=== PATIENT | female | born 1955 | race Two or more races ===

== ENCOUNTER 2017-10-25 08:23 | Emergency (ER) | payer OTHER ==
[~2017-10-25] VITALS: Ht 162.6 cm; Wt 138.3 kg
[~2017-10-25 08:23] MED LIST: DICL-37; ENAL10TA88; FURO80TA; GABA300C; LEVO25TA6; METH-532; METHOTREXATE; NOR10T; OXYC15TA48; SERT-135; TRAM-297
[2017-10-25] MEDS ORDERED: SODIUM CHLORIDE 0.9% 1,000 ML IV ONE (08:40)
[2017-10-25] MEDS ORDERED: KETOROLAC TROMETH 30 MG/ML 1ML VIAL IV ONE (08:45)
[2017-10-25 11:34] LABS: Basophils # (auto) 0.1 uL; Eosinophils # (auto) 0.1 uL; Eosinophils % (auto) 0.9 % (0.0-7.0); Hematocrit 39.7 % (36.0-46.0); Hemoglobin 13.2 g/dL (12.2-16.2); Lymphocytes # (auto) 1.2 uL; Lymphocytes % (auto) 11.4 % (10.0-50.0); Mean Corpuscular Hemoglobin 29.4 pg (28.0-32.0); Mean Corpuscular Hgb Conc. 33.2 g/dL (32.0-36.0); Mean Corpuscular Volume 88.6 fL (80.0-100.0); Monocytes # (auto) 0.3 uL; Monocytes % (auto) 3.2 % (0.0-12.0); Neutrophils # (auto) 8.6 uL; Neutrophils % (auto) 83.5 % (37.0-80.0); Nucleated Red Blood Cells % 0.1 %; Platelet Count (auto) 153 10^3/uL (140-450); Red Blood Cells 4.48 10^6/uL (4.0-5.20); Red Cell Distribution Width 15.1 % (11.8-14.3); White Blood Cell 10.3 10^3/uL (4.4-10.8)
[2017-10-25 11:54] LABS: Albumin 3.3 g/dL (3.4-5.0); BUN/Creatinine Ratio 24.6; Bilirubin, Total 0.4 mg/dL (0.2-1.0); Calcium 8.9 mg/dL (8.5-10.1); Total Protein 7.3 g/dL (6.4-8.2)
[2017-10-25 14:08] VITALS: BP 149/62
== END 2017-10-26 08:17 | disposition home or self-care (01) ==
LOC: EDBD 08:23 → ER 08:28
DX: M79.605 Pain in left leg (principal); M79.604 Pain in right leg; J44.9 Chronic obstructive pulmonary disease, unspecified; M19.90 Unspecified osteoarthritis, unspecified site; I10 Essential (primary) hypertension; E07.9 Disorder of thyroid, unspecified; Z88.1 Allergy status to other antibiotic agents; Z88.6 Allergy status to analgesic agent; Z88.0 Allergy status to penicillin; Z88.8 Allergy status to other drugs, medicaments and biological substances; Z79.899 Other long term (current) drug therapy; Z90.710 Acquired absence of both cervix and uterus
CPT/HCPCS: 36415; 73560; 73600; 80053; 85025; 96361; 96374; 99285; J1885; J7030

== ENCOUNTER 2018-07-14 13:59 | Emergency (ER) | payer OTHER, MEDICAID ==
[~2018-07-14] VITALS: Ht 167.6 cm; Wt 222.3 kg
[2018-07-14] MEDS ORDERED: KETOROLAC TROMETH 30 MG/ML 1ML VIAL IV ONE (14:30)
[2018-07-14 14:45] LABS: Basophils # (auto) 0 uL; Basophils % (auto) 0.7 % (0.0-2.0); Eosinophils # (auto) 0.3 uL; Eosinophils % (auto) 4.2 % (0.0-7.0); Hematocrit 43.2 % (36.0-46.0); Hemoglobin 14.1 g/dL (12.2-16.2); Lymphocytes # (auto) 1.5 uL; Lymphocytes % (auto) 24.2 % (10.0-50.0); Mean Corpuscular Hemoglobin 28.6 pg (28.0-32.0); Mean Corpuscular Hgb Conc. 32.6 g/dL (32.0-36.0); Mean Corpuscular Volume 87.7 fL (80.0-100.0); Monocytes # (auto) 0.3 uL; Monocytes % (auto) 5.4 % (0.0-12.0); Neutrophils % (auto) 65.5 % (37.0-80.0); Platelet Count (auto) 156 10^3/uL (140-450); Red Blood Cells 4.92 10^6/uL (4.0-5.20); Red Cell Distribution Width 16.3 % (11.8-14.3); White Blood Cell 6.1 10^3/uL (4.4-10.8)
[2018-07-14 15:02] LABS: INR 0.95 (0.9-1.15); Partial Thromboplastin Time 27.8 sec (23.78-33.04); Prothrombin Time 10.2 sec (9.27-12.13)
[2018-07-14 15:14] LABS: BUN/Creatinine Ratio 22.4; Bilirubin, Total 0.3 mg/dL (0.2-1.0); Calcium 8.5 mg/dL (8.5-10.1); Potassium 3.7 mmol/L (3.5-5.1); Total Protein 7.4 g/dL (6.4-8.2)
[2018-07-14 22:02] VITALS: BP 97/63
== END 2018-07-14 22:30 | disposition home or self-care (01) ==
LOC: EDBD 13:59 → ER 14:01
DX: M25.561 Pain in right knee (principal); J44.9 Chronic obstructive pulmonary disease, unspecified; I10 Essential (primary) hypertension; Z90.710 Acquired absence of both cervix and uterus; Z88.0 Allergy status to penicillin; Z88.1 Allergy status to other antibiotic agents; Z88.2 Allergy status to sulfonamides; Z88.5 Allergy status to narcotic agent; Z79.899 Other long term (current) drug therapy
CPT/HCPCS: 36415; 80053; 85025; 85379; 85610; 85730; 93971; 94761; 96374; 99285; J1885

== ENCOUNTER 2018-12-02 09:38 | Emergency (ER) | payer OTHER, MEDICAID ==
[~2018-12-02] VITALS: Ht 165.1 cm; Wt 204.1 kg
[~2018-12-02 09:38] MED LIST changes: +ACE500T PO; +ALB5IS NEB; +CEFU500T43 PO; +CLOT1CRE13 TOP; +CRANCAP12 PO; -DICL-37; +DOCU100C8 PO; +DOXY-216 PO; +DULO40CA PO; -ENAL10TA88; +FURO40TA4 PO; -FURO80TA; -GABA300C; +GABA300C10 PO; +GUAI600T23 PO; +HYDR-4683 PO; +IPR002IS NEB; +IPRA1SOL3 IN; -LEVO25TA6; +LINE1TAB6 PO; +LOPE2TAB78 PO; +LORA-654 PO; +LOSA-46 PO; +MAGN400C2 PO; -METH-532; -METHOTREXATE; +MIRT30TA PO; +MULT1TAB95 PO; -NOR10T; +NYS15PW TOP; -OXYC15TA48; +PROP10TA57 PO; +QUET100T46 PO; +SENN1TAB14 PO; -SERT-135; +SERT-274 PO; -TRAM-297; +TRIA0.1P11 TOP; +TURM500C3 PO
[2018-12-02] MEDS ORDERED: SODIUM CHLORIDE 0.9% 500 ML IVB ONE (09:49)
[2018-12-02 10:57] LABS: Basophils # (auto) 0.1 uL; Basophils % (auto) 0.5 % (0.0-2.0); Eosinophils # (auto) 0 uL; Eosinophils % (auto) 0.4 % (0.0-7.0); Hematocrit 44.2 % (36.0-46.0); Hemoglobin 13.8 g/dL (12.2-16.2); Lymphocytes # (auto) 1.3 uL; Lymphocytes % (auto) 11.8 % (10.0-50.0); Mean Corpuscular Hemoglobin 29.3 pg (28.0-32.0); Mean Corpuscular Hgb Conc. 31.1 g/dL (32.0-36.0); Mean Corpuscular Volume 94.2 fL (80.0-100.0); Monocytes # (auto) 0.9 uL; Monocytes % (auto) 8.3 % (0.0-12.0); Neutrophils # (auto) 8.6 uL; Platelet Count (auto) 175 10^3/uL (140-450); Red Blood Cells 4.69 10^6/uL (4.0-5.20); White Blood Cell 10.9 10^3/uL (4.4-10.8)
[2018-12-02 15:06] LABS: Alanine Aminotransferase 39 U/L (13-56); Albumin 3.1 g/dL (3.4-5.0); Anion Gap 9 (5-15); Aspartate Aminotransferase 55 U/L (15-37); BUN/Creatinine Ratio 18.4; Blood Alcohol < 3.0 mg/dL (0-5); Blood Urea Nitrogen 45 mg/dL (7-18); Calcium 7.5 mg/dL (8.5-10.1); Carbon Dioxide 32 mmol/L (21-32); Chloride 95 mmol/L (98-107); GFR African American 26 mL/min; GFR Non-African American 21 mL/min; Glucose 99 mg/dL (74-106); Magnesium 2.3 mg/dL (1.6-2.6); Sodium 136 mmol/L (136-145)
[2018-12-02 15:15] LABS: Alkaline Phosphatase 85 U/L (45-117); Bilirubin, Total 0.4 mg/dL (0.2-1.0); Total Protein 7.4 g/dL (6.4-8.2)
[2018-12-02 15:28] LABS: Potassium 6.1 mmol/L (3.5-5.1)
[2018-12-02 16:31] LABS: INR 0.99 (0.9-1.15); Partial Thromboplastin Time 18.5 sec (23.78-33.04); Prothrombin Time 10.6 sec (9.27-12.13)
[2018-12-02] MEDS ORDERED: SODIUM POLYSTYRENE SULF 15GM/60ml SUSP or POWDER PR ONE (17:00)
[2018-12-02] MEDS ORDERED: LORazepam 2MG/ML-1ML VIAL IV ONE (17:00)
[2018-12-02] MEDS: ALBUTEROL SULF 2.5 MG/0.5ML(0.5%) NEB SOLN NEB SCH ×2 (17:22→22:14)
[2018-12-02] MEDS ORDERED: ALBUTEROL SULF 2.5 MG/0.5ML(0.5%) NEB SOLN NEB ONE (18:30)
[2018-12-02] MEDS ORDERED: SODIUM CHLORIDE 0.9% 2,000 ML IV ONE (19:30)
[2018-12-02] MEDS ORDERED: NITROGLYCERIN 0.4 MG SL TAB SL PRN (19:30)
[2018-12-02] MEDS ORDERED: SODIUM CHLORIDE 0.9% 1,000 ML IV ONE (19:30)
[2018-12-02] MEDS ORDERED: ACETAMINOPHEN 500 MG TAB PO PRN (19:30)
[2018-12-02] MEDS ORDERED: MORPHINE SULFATE 4 MG/ML SYR/VIAL IV PRN (19:45)
[2018-12-02] MEDS ORDERED: ALBUTEROL SULF 2.5 MG/0.5ML(0.5%) NEB SOLN NEB SCH (22:00)
[2018-12-02 22:02] VITALS: BP 122/84
[2018-12-02] MEDS: IPRATROPIUM BROM 0.5 MG/2.5ML INH SOL NEB SCH (22:14)
[2018-12-03] MEDS: LORazepam 2MG/ML-1ML VIAL IM PRN ×2 (00:05→06:54)
[2018-12-03] MEDS: ALBUTEROL SULF 2.5 MG/0.5ML(0.5%) NEB SOLN NEB SCH ×4 (02:19→14:00)
[2018-12-03] MEDS: IPRATROPIUM BROM 0.5 MG/2.5ML INH SOL NEB SCH ×4 (02:19→14:00)
[2018-12-03 08:26] LABS: Urine Amorphous Crystal FEW /hpf (None Seen); Urine Bacteria FEW /hpf (None Seen); Urine Blood Negative /uL (Negative); Urine Hyaline Cast MOD /lpf (0 - 2); Urine Specific Gravity 1.016 (1.001-1.035); Urine WBC 5 /hpf (0 - 5)
[2018-12-03] MEDS ORDERED: SODIUM BICARBONATE 50ML VIAL 100 ML in D5W 5% 1,000 ML IV ONE (08:30)
[2018-12-03 08:35] LABS: Amphetamine Screen, Urine NEGATIVE (NEGATIVE); Barbiturate Scree,Urine NEGATIVE (NEGATIVE); Benzodiazephine Screen, Urine NEGATIVE (NEGATIVE); Cannabinoid Screen, Urine NEGATIVE (NEGATIVE); Cocaine Screen, Urine NEGATIVE (NEGATIVE); Opiate Scree,Urine POSITIVE (NEGATIVE); Phencyclidine Screen, Urine NEGATIVE (NEGATIVE)
[2018-12-03 15:18] VITALS: BP 156/87
== END 2018-12-03 16:47 | disposition home or self-care (01) ==
LOC: EDBD 09:38 → ER 09:46
DX: R41.82 Altered mental status, unspecified (principal); J90 Pleural effusion, not elsewhere classified; J44.9 Chronic obstructive pulmonary disease, unspecified; F32.9 Major depressive disorder, single episode, unspecified; I10 Essential (primary) hypertension; F41.9 Anxiety disorder, unspecified; Z90.710 Acquired absence of both cervix and uterus; Z88.0 Allergy status to penicillin; Z88.1 Allergy status to other antibiotic agents; Z88.6 Allergy status to analgesic agent
CPT/HCPCS: 36415; 70450; 71045; 80053; 80307; 80320; 81001; 83605; 83735; 84132; 84484; 85025; 85610; 85730; 87040; 93005; 94640; 94761; 96361; 96372; 96374; 99285; J2060; J7030; J7040; J7070; J7611; J7644; 94645